=== PATIENT | female | born 1965 | race Hispanic/Latino ===

== ENCOUNTER 2017-05-27 05:50 | Inpatient (IN) | payer MEDICARE ==
[2017-05-27] MEDS ORDERED: VERSED IV NR (06:00)
[2017-05-27] MEDS ORDERED: NACL 0.9% 1000 ML 1,000 ML IV SCH (06:00)
[2017-05-27] MEDS ORDERED: TRANSDERM-SCOP TD NR (06:00)
[2017-05-27] MEDS ORDERED: PEPCID IV NR (06:00)
[2017-05-27] MEDS ORDERED: SYNTHROID PO SCH (06:00)
[2017-05-27] MEDS ORDERED: NACL BACTERIOSTATIC INFILTRATI ONE (06:35)
[2017-05-27] MEDS ORDERED: WATER FOR IRRIG STERILE IR ONE (07:15)
[2017-05-27] MEDS ORDERED: XYLOCAINE 1% 20 mL ONE (07:22)
[2017-05-27] MEDS ORDERED: MARCAINE-EPI/PF 0.5%-1:200,000 INFILTRATI ONE ×2 (07:22→09:07)
[2017-05-27] MEDS ORDERED: DIPRIVAN 10 MG/ML IV ONE (07:24)
[2017-05-27] MEDS ORDERED: DILAUDID ONE (07:25)
[2017-05-27] MEDS ORDERED: ZEMURON IV ONE ×2 (07:25→09:58)
[2017-05-27] MEDS ORDERED: XYLOCAINE MPF 2% ONE (07:25)
[2017-05-27] MEDS ORDERED: LOPRESSOR PO ONE (07:30)
[2017-05-27] MEDS ORDERED: LOPRESSOR IV ONE ×2 (07:31→07:32)
--- NOTE | 2017-05-27 07:36 | Anesthesia Consultation ---
Anesthesia Consult and Med Hx Date of service: 05/27/17 - Airway Anesthetic Teeth Evaluation: Good ROM Head & Neck: Adequate Mental/Hyoid Distance: Adequate Mallampati Class: Class III Intubation Access Assessment: Possibly Difficult - Pulmonary Exam CTA: Yes - Cardiac Exam Cardiac Exam: RRR - Pre-Operative Health Status ASA Pre-Surgery Classification: ASA3 Proposed Anesthetic Plan: General - Pulmonary Hx Smoking: Yes Hx Asthma: Yes Hx Sleep Apnea: Yes - Cardiovascular System Hx Hypertension: Yes (20 YRS) - Central Nervous System Hx Back Pain: Yes Hx Psychiatric Problems: Yes - Endocrine Hx Hypothyroidism: Yes - Hematic Hx Anemia: No - Other Systems Hx Alcohol Use: No Hx Substance Use: No Hx Cancer: No Hx Obesity: Yes (morbid obesity)
--- NOTE | 2017-05-27 07:36 | Anesthesia Day of Surgery ---
Anesthesia Day of Surgery - Day of Surgery Patient Examined: Yes Patient H&P Reviewed: Yes Patient is NPO: Yes Beta Blockers: Yes (metoprolol 7.5mg IV given in preop)
[2017-05-27] MEDS ORDERED: REGLAN IV PRN (07:42)
[2017-05-27] MEDS ORDERED: APRESOLINE IV PRN (07:42)
[2017-05-27] MEDS ORDERED: FLEXERIL PO PRN (07:45)
[2017-05-27] MEDS ORDERED: PROAIR IH PRN (07:45)
[2017-05-27] MEDS ORDERED: NON-FORMULARY (Gabapentin [Neurontin] 600 MG) PO SCH (07:45)
[2017-05-27] MEDS ORDERED: LOVENOX SUB-Q NR (08:00)
[2017-05-27] MEDS ORDERED: ANCEF/STERILE WATER 2 GM/20 ML IV NR (08:00)
[2017-05-27] MEDS ORDERED: FLAGYL 500 MG/100 ML 500 MG/100 ML BAG IV NR (08:00)
[2017-05-27 08:09] LABS: Basophils % (Auto) 0.9 % (0.0-1.8); Eosinophils % (Auto) 1.7 % (0.0-4.3); Hematocrit 39.5 % (30.3-42.9); Hemoglobin 13.6 gm/dl (10.1-14.3); Mean Corpuscular HGB Conc 35 % (30-34); Mean Corpuscular Hemoglobin 30 pg (28-32); Mean Corpuscular Volume 87 fl (79-97); Platelet Count 249 K/mm3 (140-440); Red Blood Count 4.53 M/mm3 (3.65-5.03); Red Cell Distribution Width 14.2 % (13.2-15.2); White Blood Count 7.6 K/mm3 (4.5-11.0)
[2017-05-27 08:15] LABS: Alanine Aminotransferase 20 units/L (7-56); Albumin 4.1 g/dL (3.9-5); Albumin/Globulin Ratio 1.2 %; Alkaline Phosphatase 48 units/L (35-129); Anion Gap 21 mmol/L; BUN/Creatinine Ratio 13.75; Blood Urea Nitrogen 11 mg/dL (7-17); Calcium 9.4 mg/dL (8.4-10.2); Carbon Dioxide 23 mmol/L (22-30); Chloride 101.4 mmol/L (98-107); Glucose 100 mg/dL (65-100); Potassium 4.1 mmol/L (3.6-5.0); Sodium 141 mmol/L (137-145); Total Protein 7.5 g/dL (6.3-8.2)
[2017-05-27] MEDS ORDERED: PROVENTIL IH PRN (08:15)
[2017-05-27] MEDS ORDERED: QUELICIN ONE (08:41)
[2017-05-27] MEDS ORDERED: ePHEDrine SULFATE ONE ×2 (08:44→10:05)
--- NOTE | 2017-05-27 08:45 | Admit Criteria Form ---
Admission Criteria Documentation: AMBULATORY SURGERY EXCEPTION CRITERIA Ambulatory Surgery Exception Criteria ( Place 'X' for any and all applicable criteria): Surgery or procedure performed on ambulatory basis may require inpatient stay for[A] ANY ONE of the following(1)(2)(3)(4)(5)(6)(7)(8)(9): [X] I. A preoperative situation, condition, or finding that warrants inpatient stay as indicated by ANY ONE of the following: [] a) Inpatient care needed because of severity of a disease or condition rather than the surgery (eg, severe cardiac or respiratory disease, severe infection) (15) (16 ) (17) (18) [] b) Emergent procedure (eg, angioplasty for acute ischemia)(19) [] c) Complex surgical approach or situation as indicated by ANY ONE of the following(3): [] i) Open approach needed instead of usual endoscopic, transcatheter, or other less invasive procedure [] ii) Difficult approach because of previous operation [] iii) Airway monitoring required after open neck procedures(20)(21) [] iv) Large mass requiring unusually extensive dissection [] v) Additional complicating feature requiring inpatient care (eg, drain management)(22(23): [X] d) Major surgery in a pt with high anesthetic risk as indicated by ANY ONE of the following (2)(3)(5)(7)(8): [X] i) ASA risk class III or higher (severe systemic disease impairing function) [D] [] ii) Advanced age (eg, older than 85 years)(14)(24) [] iii) Symptomatic heart failure(25) [] iv) Symptomatic asthma or COPD(8)(21) [] v) Morbid obesity with hemodynamic or respiratory problems(20)( 21)(26)(27) [] vi) Obstructive sleep apnea(20)(21) [] vii) Former premature infants who are younger than 60 weeks [] viii) High risk for severe postoperative abnormalities (eg, severe postoperative hypocalcemia after parathyroidectomy for severe hyperparathyroidism)(27)( 28) [] ix) Unstable angina(25) [] e) Drug-related risk requiring inpatient stay as indicated by ANY ONE of the following(5)(10)(14)(32)(33) [] i) Procedure requires discontinuing drugs or other therapy (eg , antiarrhythmic medication, antiseizure medication), which necessitates inpatient observation or treatment.(18)(31) [] ii) Major surgery and high risk drug use as indicated by ANY ONE of the following: [] 1) Active abuse of cocaine or similar drug [] 2) Monoamine oxidase inhibitor use [] 3) Other drug identified as posing risk [] f) Inadequate outpatient care situation as indicated by ANY ONE of the following(5)(10)(14)(32)(33) [] i) Patient lives remote from medical facility and procedure has urgent complication potential, and temporary nearby residence cannot be arranged [] ii) Patient will have postprocedure incapacitation and inadequate assistance at home, or alternative level of care cannot be arranged. [] iii) Patient will have long general anesthesia or procedure side effect resolution time, and competent person to stay with patient on first postoperative night at home or alternative level of care cannot be arranged. []iv) Other inadequate outpatient situation that cannot be handled by other means [] II. A perioperative event, condition, or finding that warrants inpatient stay as indicated by ANY ONE of the following (1)(2)(3): [] a) Inadequate physiologic recovery: cardiovascular, respiratory, or hemodynamic status not normal or near preoperative baseline(18) [] b) Hemodynamic instability [] c) Patient not alert with near normal or baseline mental status [] d) Temperature not normal or as expected and not appropriate for outpatient treatment of condition [] e) Ambulatory or appropriate activity level status not yet achieved post procedure [E](34)(35)(36) [] f) Operative site not appropriate (eg, unexpected or excessive drainage or bleeding) [] g) Postoperative effects not resolved or adequately managed (eg, significant pain or vomiting not appropriate for outpatient or next level of care)(10)(12) [] h) Complicating features requiring inpatient care as indicated by ANY ONE of the following(37): [] i) Severe complications of procedure (eg, bowel injury, airway compromise, vascular injury,severe hemorrhage) [] ii) Extensive (eg, dissection far beyond usual scope of procedure ) or prolonged (eg, 120 minutes beyond usual) surgery needed requiring inpatient postoperative care [] iii) Conversion to an open or complex procedure that requires inpatient care (eg, open vs laparoscopic cholecystectomy, abdominal vs vaginal hysterectomy)(38) [] iv) Comorbid condition or test result identified during or post procedure that requires inpatient care (7) [] v) Malignant hyperthermia(30) [] vi) Other complicating feature requiring inpatient care(22)(23) Inpatient stay may be needed until ALL of the following are present (1)(2)(3)(4) (5)(6)(10)(14)(33)(40): []a) Physiologic recovery: cardiovascular, respiratory, and hemodynamic status normal or near preoperative baseline []b) Hemodynamic stability []c) Patient alert, with near normal or baseline mental status []d) Temperature appropriate: patient afebrile or temperature appropriate for outpt treatment of condition []e) Activity level appropriate: ambulatory or appropriate activity level post procedure []f) Operative site appropriate as indicated by ALL of the following: []i) Site dry or with expected drainage []ii) Any blood noted is as expected for procedure. []g) Postoperative effects resolved or managed as indicated by ALL of the following: []i) Pain management appropriate for outpatient (or next level of) care(10) []ii) Minimal nausea and vomiting: if present, successfully treated with oral medication(12) []iii) Headache, dizziness, or drowsiness (if present) are mild. []h) Voiding status acceptable as indicated by ANY ONE of the following: []i) Voiding spontaneously []ii) No voiding but instructions given for follow-up in 6 to 8 hours []iii) Urinary catheter in place, and instructions given for follow-up []i) Complicating features requiring inpatient care manageable at a lower level of care(37) []j) Comorbid conditions manageable at a lower level of care(37) The original [employer] content created by [employer] has been revised. The portions of the content which have been revised are identified through the use of italic text or in bold, and [facility] [employer] has neither reviewed nor approved the modified material. All other unmodified content is copyright [employer]. Please see references footnoted in the original [employer] edition 2016 Admission Criteria Met: Yes
[2017-05-27] MEDS ORDERED: NACL P/F VIAL (10 ML) 10 ML ONE (08:50)
[2017-05-27] MEDS ORDERED: XYLOCAINE 1% 20 mL INFILTRATI ONE (09:07)
[2017-05-27] MEDS ORDERED: NACL 0.9% IR ONE ×2 (09:07→09:55)
[2017-05-27] MEDS ORDERED: NACL 0.9% 1000 ML 1,000 ML ONE (09:12)
[2017-05-27] MEDS ORDERED: WELLBUTRIN XL PO SCH (10:00)
[2017-05-27] MEDS ORDERED: NON-FORMULARY (Trazodone Hcl [Trazodone Hcl] 150 MG) PO SCH (10:00)
[2017-05-27] MEDS ORDERED: NON-FORMULARY (Losartan [Cozaar] 100 MG) PO SCH (10:00)
[2017-05-27] MEDS ORDERED: ZOFRAN ONE (10:18)
[2017-05-27] MEDS ORDERED: ROBINUL ONE ×2 (10:21→10:22)
[2017-05-27] MEDS ORDERED: BLOXIVERZ ONE (10:21)
--- NOTE | 2017-05-27 10:52 | Operative Report ---
Operative Report Operative Report: Operative Report DATE OF PROCEDURE: 05/27/17 SURGEON: Richie Falk M.D. [employer] P[employer]ER MACHINE OPERATOR: Mars Griffith MD PREOPERATIVE DIAGNOSIS: Morbid obesity. POSTOPERATIVE DIAGNOSES: Morbid obesity PROCEDURES PERFORMED: 1. Laparoscopic gastric bypass. ANESTHESIA: General endotracheal tube intubation. SPECIMENS: None. ESTIMATED BLOOD LOSS: Less than 10 mL. FINDINGS: Normal anatomy. COMPLICATIONS: None. INDICATION: is a 52-year-old female with history of morbid obesity, history of htn and sleep apnea. She signed informed consent and expressed understanding of risks and benefits. DESCRIPTION OF PROCEDURE: Patient was brought to the OR suite, laid in supine position. Bilateral lower extremity SCDs were placed. General anesthesia was induced via successful endotracheal tube intubation. Patient's abdomen was prepped and draped in sterile fashion. Using Optiview technique, a 12-mm trocar was placed into the abdominal cavity under direct vision. There was noted to be no gross injury to any intraabdominal structures. 5 working trocars were placed under direct visualization, 12 mm in the right mid abdomen mid clavicular line and four 5-mm trocars in the right upper quadrant, epigastric, left upper quadrant and left mid abdomen. At this time, the ligament of Treitz identified and followed down approximately 30 cm and the jejunum was transected. The distal segment of jejunum was then traced for approximately 75 cm and a stable [id number] jejunojejunostomy was performed. The common enterotomy was closed with 2 firings of the endoscopic stapler. The mesenteric defect was closed with running Surgidac suture. This anastomosis was found to be patent without kink, obstruction or bleeding. At this time, the patient was placed in steep reverse Trendelenburg position. A liver retractor was placed through the epigastric port to elevate the left lateral lobe of the liver. A small gastric pouch was formed. The Clemente limb was then brought in an antegastric antecolic fashion and secured with 2 stay sutures to the gastric pouch. After this, the enterotomies were made with Harmonic scalpel, and a [id number] stapled gastrojejunostomy was performed with a mechanical stapler. After this, a 2-layer running closure using absorbable v-lock suture were done, the first being mucosal approximation prior to completion of the first layer. The anesthesia passed and an EGD scope beyond the anastomosis to act as a stent. The first layer was completed, the second was then performed. After this, the EGD was retracted slightly. A bowel clamp was placed in a proximal Clemente limb. The anastomosis was submerged under saline. Via intraluminal EGD insufflation, there was noted be no bubbles in the saline indicating an airtight anastomosis. There was noted to be no obstruction or bleeding intraluminally in the pouch or the anastomosis. At this time, the scope was removed. The saline was aspirated. Tiseel was placed over the anastomosis. All trocars were removed under direct visualization and the abdomen was then desufflated. The skin incisions were closed with 4-0 Monocryl followed by Dermabond dressings. Patient was awoken and taken to recovery in stable condition. All counts were correct.
[2017-05-27] MEDS: DILAUDID IV PRN ×3 (11:23→18:51)
[2017-05-27] MEDS: MYLICON PO PRN (11:32)
--- NOTE | 2017-05-27 12:50 | Post Anesthesia Evaluation ---
- Post Anesthesia Evaluation Patient Participated: Yes Airway Patent: Yes Stable Respiratory Function: Yes Nausea/Vomiting: No Temp > 96.8F: Yes Pain Manageable: Yes Adequeate Hydration: Yes Anesthesia Complications: No Block Receding Appropriately: Not Applicable Patient on Ventilator: No
[2017-05-27] MEDS: COZAAR PO SCH (13:17)
[2017-05-27] MEDS: WELLBUTRIN SR PO SCH ×2 (13:18→22:00)
[2017-05-27] MEDS: NEURONTIN PO SCH ×2 (13:18→22:00)
[2017-05-27] MEDS: LOPRESSOR PO SCH ×2 (13:18→22:11)
[2017-05-27] MEDS: LACTATED RINGERS 1,000 ML IV SCH ×2 (15:28→23:45)
[2017-05-27] MEDS: FLAGYL 500 MG/100 ML 500 MG/100 ML BAG IV SCH (15:29)
[2017-05-27] MEDS: ANCEF/NS 1 GM/50 ML 1 GM/50 ML BAG IV SCH ×2 (15:30→23:45)
[2017-05-27] MEDS: ZOFRAN IV PRN (18:51)
[2017-05-27] MEDS ORDERED: DESYREL PO SCH (22:00)
[2017-05-28] MEDS: DILAUDID IV PRN ×2 (00:06→04:00)
[2017-05-28] MEDS: FLAGYL 500 MG/100 ML 500 MG/100 ML BAG IV SCH ×2 (00:12→08:01)
[2017-05-28 05:34] LABS: Basophils % (Auto) 0.5 % (0.0-1.8); Eosinophils % (Auto) 0.3 % (0.0-4.3); Hematocrit 37.7 % (30.3-42.9); Hemoglobin 12.9 gm/dl (10.1-14.3); Mean Corpuscular HGB Conc 34 % (30-34); Mean Corpuscular Hemoglobin 30 pg (28-32); Mean Corpuscular Volume 89 fl (79-97); Platelet Count 204 K/mm3 (140-440); Red Blood Count 4.26 M/mm3 (3.65-5.03); Red Cell Distribution Width 14.5 % (13.2-15.2); White Blood Count 8.4 K/mm3 (4.5-11.0)
[2017-05-28 05:51] LABS: Alanine Aminotransferase 25 units/L (7-56); Albumin 3.7 g/dL (3.9-5); Albumin/Globulin Ratio 1.3 %; Alkaline Phosphatase 43 units/L (35-129); Anion Gap 16 mmol/L; BUN/Creatinine Ratio 13.33; Blood Urea Nitrogen 8 mg/dL (7-17); Calcium 8.5 mg/dL (8.4-10.2); Carbon Dioxide 25 mmol/L (22-30); Chloride 100.7 mmol/L (98-107); Glucose 123 mg/dL (65-100); Potassium 3.9 mmol/L (3.6-5.0); Sodium 138 mmol/L (137-145); Total Protein 6.5 g/dL (6.3-8.2)
[2017-05-28] MEDS: NEURONTIN PO SCH ×2 (06:15→14:00)
[2017-05-28] MEDS: MYLICON PO PRN ×2 (08:00→14:14)
[2017-05-28] MEDS: ZOFRAN IV PRN (08:00)
[2017-05-28] MEDS: NORCO PO PRN ×2 (08:03→14:15)
[2017-05-28] MEDS: LACTATED RINGERS 1,000 ML IV SCH (08:26)
[2017-05-28] MEDS ORDERED: LOVENOX SUB-Q SCH (10:00)
[2017-05-28] MEDS: COZAAR PO SCH (10:48)
[2017-05-28] MEDS: LOPRESSOR PO SCH (10:49)
[2017-05-28] MEDS: WELLBUTRIN SR PO SCH (10:56)
[2017-05-28 12:27] VITALS: BP 118/68
--- NOTE | 2017-05-28 12:42 | Discharge Summary ---
Providers - Providers Date of Admission: 05/27/17 05:50 Date of discharge: 05/28/17 Attending physician: TANO FALK Primary care physician: MONITORING MANAGER Hospitalization Condition: Good Hospital course: 52 y.o. F s/p lap gastric bypass. She was admitted to the hospital for lap gastric bypass. Her hospital course was uncomplicated. She is tolerated liquids without issue. Disposition: DC- TO HOME OR SELFCARE Core Measure Documentation - Palliative Care Palliative Care/ Comfort Measures: Not Applicable - Core Measures Any of the following diagnoses?: none Exam - Physical Exam Narrative exam: VSS Gen: A+Ox 3 Cardio: RRR Lung: CTA BL Abd: soft, incision sites cdi. minimal tenderness at incision sites. no rebound no guarding. obese. Ext: no c/c/e - Constitutional Vitals: Temp Pulse Resp BP Pulse Ox 97.6 F 69 20 118/68 96 05/28/17 12:00 05/28/17 12:00 05/28/17 12:00 05/28/17 12:00 05/28/17 12:00 Plan Activity: other (no lifting >15lbs for 6 weeks ) Diet: clear liquids (sugar free), other Special Instructions: other (Water intake: 64 oz per day) Follow up with: JOHN RICCI MD [Primary Care Provider] - 7 Days TANO FALK MD [Staff Physician] - 14 Days (24-28 hr. wound care visit. Then Follow up with Dr. Falk 2 weeks after surgery)
== END 2017-05-28 17:10 | disposition home or self-care (01) | DRG 621 ==
LOC: 3A 05:50 → 2B-SURG 11:11
PROVIDERS: ADMIT Surgery; ATTEND Surgery
PROC: 0D164ZA Bypass Stomach to Jejunum, Percutaneous Endoscopic Approach (ICD-10-PCS; principal; 2017-05-27)
DX: E66.01 Morbid (severe) obesity due to excess calories (principal); I10 Essential (primary) hypertension; E03.9 Hypothyroidism, unspecified; K21.9 Gastro-esophageal reflux disease without esophagitis; F41.9 Anxiety disorder, unspecified; E11.9 Type 2 diabetes mellitus without complications; G43.909 Migraine, unspecified, not intractable, without status migrainosus; F32.9 Major depressive disorder, single episode, unspecified; F17.200 Nicotine dependence, unspecified, uncomplicated; I49.9 Cardiac arrhythmia, unspecified; M54.5 Low back pain; G47.33 Obstructive sleep apnea (adult) (pediatric); Z82.49 Family history of ischemic heart disease and other diseases of the circulatory system; Z83.3 Family history of diabetes mellitus; Z88.5 Allergy status to narcotic agent; Z88.6 Allergy status to analgesic agent; Z68.45 Body mass index [BMI] 70 or greater, adult
CPT/HCPCS: 36415; 80053; 85025; 94760; A4217; C9250; J0330; J0360; J0690; J1170; J1650; J2405; J2704; J2710; J2765; J7030; J7120